=== PATIENT | male | born 1965 | race Caucasian/White ===

== ENCOUNTER 2016-12-19 07:54 | Day surgery (SDC) | payer BC ==
[~2016-12-19 07:54] MED LIST: FENTANYL 250 MCG/5 ML AMP IV PRN; LACTATED RINGERS 1,000 ML IV SCH; MIDAZOLAM HCL 5 MG/5 ML VIAL IV PRN
[2016-12-19] MEDS ORDERED: SODIUM CHLORIDE 0.9% 1,000 ML ONE (08:19)
[2016-12-19] MEDS ORDERED: IV START KIT ONE (08:20)
[2016-12-19] MEDS ORDERED: FENTANYL 250 MCG/5 ML AMP ONE (09:14)
[2016-12-19] MEDS ORDERED: MIDAZOLAM HCL 5 MG/5 ML VIAL ONE (09:14)
--- NOTE | 2016-12-21 09:54 | SURGPATH ---
[facility] [address] [place] [id number] Patient Name: CHAPARRO ZHOU MR#: [id number] : 1965 Gender: M Specimen #: [id number] Collected: 12/19/2016 Received: 12/20/2016 Reported: 12/21/2016 Submitting Phys: MONTRELL NORWOOD Copy To Phys: [facility] Clinical History / Pre-Operative Diagnosis: SURVEILLANCE Specimen Source / Surgical Procedure Performed: #1-MID TRANSVERSE COLON POLYP; #2-SIGMOID POLYP AT 20 CM Interpretation: 1. MID TRANSVERSE COLON POLYP, POLYPECTOMY: - TUBULAR ADENOMA 2. SIGMOID POLYP AT 20 CM, POLYPECTOMY: - TUBULAR ADENOMA Electronically Signed Out Johnson Meléndez M.D. Gross Description: #1 The specimen is received in a formalin filled container labeled with the patient's name and "mid transverse colon polyp". A polypoid carpio biopsy is 0.6 x 0.4 x 0.3 cm. Trisected. Totally embedded in cassette #1. #2 The specimen is received in a formalin filled container labeled with the patient's name and "sigmoid polyp at 20 cm". A polypoid red-carpio biopsy is 0.5 x 0.4 x 0.2 cm. Bisected. Totally embedded in cassette #2. Umer Dooley Microscopic Description: 1. The sections show colonic mucosa exhibiting adenomatous change with a tubular architectural pattern. The changes are characterized by nuclear stratification and hyperchromasia with increased mitotic activity. High-grade dysplasia is not identified. 2. The sections show colonic mucosa exhibiting adenomatous change with a tubular architectural pattern. The changes are characterized by nuclear stratification and hyperchromasia with increased mitotic activity. High-grade dysplasia is not identified. 1: [id number] 2: 91604 D12.3 D12.5
== END 2016-12-19 10:29 | disposition home or self-care (01) ==
LOC: SDC 07:54
PROVIDERS: ATTEND Internal Medicine Gastroenterology
PROC: 0DBN8ZX Excision of Sigmoid Colon, Via Natural or Artificial Opening Endoscopic, Diagnostic (ICD-10-PCS; principal; 2016-12-19)
PROC: 0DBL8ZX Excision of Transverse Colon, Via Natural or Artificial Opening Endoscopic, Diagnostic (ICD-10-PCS; 2016-12-19)
DX: Z12.11 Encounter for screening for malignant neoplasm of colon (principal); D12.3 Benign neoplasm of transverse colon; D12.5 Benign neoplasm of sigmoid colon; E11.9 Type 2 diabetes mellitus without complications; I10 Essential (primary) hypertension; E66.9 Obesity, unspecified; Z79.82 Long term (current) use of aspirin; Z79.84 Long term (current) use of oral hypoglycemic drugs
CPT/HCPCS: 45385; J3010; J2250; J7030